=== PATIENT | female | born 2000 | race Caucasian/White ===

== ENCOUNTER 2020-12-03 07:23 | Outpatient (CLI) | payer BC, OTHER ==
[2020-12-03 16:19] LABS: SARS-CoV-2 PCR by NAA Not Detected (NotDetected)
== END 2020-12-03 07:24 | disposition home or self-care (01) ==
LOC: CSHLAB 07:23
PROVIDERS: ATTEND Obstetrics & Gynecology
DX: Z20.822 Contact with and (suspected) exposure to COVID-19 (principal)
CPT/HCPCS: 87635; U0003; U0005